=== PATIENT | male | born 1955 | race Caucasian/White ===

== ENCOUNTER 2017-06-01 16:15 | Inpatient (IN) ==
[2017-06-01] MEDS ORDERED: ASPIRIN 325 MG TABLET PO STA (16:44)
[2017-06-01] MEDS ORDERED: METOPROLOL TARTRATE 5 MG/5 ML VIAL IV STA (16:44)
[2017-06-01] MEDS ORDERED: ONDANSETRON 4 MG/2 ML VIAL IV STA (16:44)
[2017-06-01] MEDS ORDERED: NITROGLYCERIN 2% OINT 1 INCH/GM PACK TOP STA (16:44)
[2017-06-01 16:51] LABS: Basophils # 0.1 10*3/uL (0.0-0.2); Basophils % 0.8 % (0.0-0.8); Eosinophils # 0.5 10*3/uL (0.0-0.87); Eosinophils % 6.1 % (0.00-10.9); Immature Granulocytes % 0.6 %; Immature Granulocytes Absolute 0.05 #; Lymphocytes # 2.2 10*3/uL (1.4-4.0); Lymphocytes % 25.8 % (21.2-54.2); Mean Corpuscular HGB Conc 36.4 GM/DL (32-36); Mean Corpuscular Hemoglobin 31 PG (27-34); Mean Corpuscular Volume 85.1 FL (87-102); Mean Platelet Volume 10.1 FL (9.6-12.0); Monocytes # 0.5 10*3/uL (0.11-0.8); Monocytes % 5.9 % (1.7-12.7); Neutrophils # 5.1 10*3/uL (1.4-7.4); Neutrophils % 60.8 % (38.7-73.9); Platelet Count 293 T/CUMM (130-400); Red Blood Count 5.17 MC/CUMM (3.8-5.5); Red Cell Distribution Width 12.5 % (9.3-17.3); White Blood Count 8.4 T/CUMM (4-12)
[2017-06-01 17:00] LABS: INR 0.9; PT Patient Result 9.8 SECS; Partial Thromboplastin Time 24.7 SECS (0-40)
[2017-06-01 17:10] LABS: Alanine Aminotransferase 42 U/L (16-61); Albumin 4.1 G/DL (3.4-5.0); Alkaline Phosphatase 154 U/L (45-117); Aspartate Amino Transferase 33 U/L (0-37); Blood Urea Nitrogen 25 MG/DL (7-18); Calcium 8.7 MG/DL (8.5-10.1); Osmolality,Calculated 288.7 MOS/KG (273-304); Potassium 4.4 MMOL/L (3.5-5.1); Sodium 131 MMOL/L (136-145); Total Protein 7.7 G/DL (6.4-8.3); Troponin I Only 0.016 NG/ML (0.00-0.045)
[2017-06-01 17:13] LABS: Glucose 519 MG/DL (74-106)
[2017-06-01] MEDS ORDERED: SODIUM CHLORIDE 0.9% 1,000 ML IV STA (17:15)
[2017-06-01] MEDS ORDERED: INSULIN REGULAR 100 UNIT/ML SUBCUT STA (17:16)
[2017-06-01] MEDS ORDERED: METOPROLOL TARTRATE 5 MG/5 ML VIAL IV ONE (17:19)
[2017-06-01] MEDS ORDERED: ONDANSETRON 4 MG/2 ML VIAL ONE (17:19)
[2017-06-01] MEDS ORDERED: NITROGLYCERIN 2% OINT 1 INCH/GM PACK TOP ONE (17:19)
[2017-06-01] MEDS ORDERED: ASPIRIN 325 MG TABLET ONE (17:19)
[2017-06-01 17:50] LABS: Apearance,Urine CLEAR (Clear); Bilirubin,Urine Negative (Negative); Blood, Urine Negative (Negative); Glucose,Urine (UA) >=500 mg/dL (Negative); Ketones,Urine Negative (Negative); Nitrite,Urine Negative (Negative); Protein,Urine Negative; Urine Color Straw (Yellow); Urine Specific Gravity 1.025 (1.001-1.035); Urine Urobilinogen < 2.0 EU/DL (0.2-1.0); WBC,Urine <1 /HPF (0-6)
[2017-06-01 17:57] LABS: Barbiturates Screen,Urine Negative (Negative); Benzodiazepines Screen,Urine Negative (Negative); Cannabinoid Screen,Urine Negative (Negative); Opiate Screen,Urine Negative (Negative); Phencyclidine Screen,Urine Negative (Negative)
[2017-06-01] MEDS ORDERED: INSULIN REGULAR 100 UNIT/ML ONE (17:58)
[2017-06-01] MEDS ORDERED: ACETAMINOPHEN 325 MG TABLET PO PRN (18:18)
[2017-06-01] MEDS ORDERED: hydrALAZINE 20 MG/1 ML VIAL IV ONE (18:26)
[2017-06-01] MEDS ORDERED: amLODIPine 5 MG TABLET PO STA (18:27)
[2017-06-01 18:58] LABS: Free T4 (Free Thyroxine) 0.96 NG/DL (0.76-1.46); Risk Ratio 6.61; T4 (Thyroxine) 8.1 UG/DL (4.7-13.3); VLDL CHOLESTEROL 193.6 MG/DL
[2017-06-01] MEDS ORDERED: MORPHINE 2 MG/1 ML SYRINGE IV PRN (19:20)
[2017-06-01] MEDS ORDERED: LISINOPRIL 2.5 MG TABLET PO SCH (21:00)
[2017-06-01] MEDS ORDERED: cloNIDine 0.1 MG TABLET PO PRN (21:46)
[2017-06-01] MEDS: ATORVASTATIN 80 MG TABLET PO SCH (22:00)
[2017-06-01] MEDS: OMEGA 3 ACID ETHYL ESTERS 1 GM CAPSULE PO SCH (22:00)
[2017-06-01] MEDS: METOPROLOL SUCCINATE XL 25 MG TABLET PO SCH (22:01)
[2017-06-01] MEDS: DOCUSATE SODIUM 100 MG CAPSULE PO SCH (22:02)
[2017-06-01] MEDS: CETIRIZINE 10 MG TABLET PO SCH (22:04)
[2017-06-01] MEDS: ISOSORBIDE MONONITRATE 30 MG TABLET PO SCH (22:04)
[2017-06-01] MEDS: APIXABAN 5 MG TABLET PO SCH (22:04)
[2017-06-01] MEDS: DULoxetine 30 MG CAPSULE PO SCH (22:04)
[2017-06-01] MEDS: FAMOTIDINE 20 MG TABLET PO SCH (22:05)
[2017-06-01] MEDS: INSULIN GLARGINE 100 UNIT/ML SUBCUT SCH (22:05)
[2017-06-02 01:46] LABS: Basophils % 0.4 % (0.0-0.8); Eosinophils # 0.5 10*3/uL (0.0-0.87); Eosinophils % 6.4 % (0.00-10.9); Hematocrit 40.3 VOL% (42.0-52.0); Hemoglobin 14.2 GM/DL (14.0-18.0); Immature Granulocytes % 0.5 %; Immature Granulocytes Absolute 0.04 #; Lymphocytes # 3.1 10*3/uL (1.4-4.0); Lymphocytes % 41.6 % (21.2-54.2); Mean Corpuscular HGB Conc 35.2 GM/DL (32-36); Mean Corpuscular Hemoglobin 30 PG (27-34); Mean Corpuscular Volume 86.1 FL (87-102); Mean Platelet Volume 10.3 FL (9.6-12.0); Monocytes # 0.5 10*3/uL (0.11-0.8); Monocytes % 7.2 % (1.7-12.7); Neutrophils # 3.3 10*3/uL (1.4-7.4); Neutrophils % 43.9 % (38.7-73.9); Platelet Count 238 T/CUMM (130-400); Red Blood Count 4.68 MC/CUMM (3.8-5.5); Red Cell Distribution Width 12.6 % (9.3-17.3); White Blood Count 7.5 T/CUMM (4-12)
[2017-06-02 02:26] LABS: Albumin 3.5 G/DL (3.4-5.0); Bilirubin,Total 0.5 MG/DL (0.2-1.0); Calcium 8.7 MG/DL (8.5-10.1); Potassium 4.2 MMOL/L (3.5-5.1); Total Protein 6.3 G/DL (6.4-8.3)
[2017-06-02] MEDS ORDERED: NON-FORMULARY MEDICATION (Liraglutide [Victoza 3-Pak] 1.2 MG) SUBCUT SCH (09:00)
[2017-06-02] MEDS: LISINOPRIL 10 MG TABLET PO SCH ×2 (09:43→21:47)
[2017-06-02] MEDS: LEVOTHYROXINE 75 MCG TABLET PO SCH (09:43)
[2017-06-02] MEDS: amLODIPine 10 MG TABLET PO SCH (09:43)
[2017-06-02] MEDS: APIXABAN 5 MG TABLET PO SCH (09:43)
[2017-06-02] MEDS: PANTOPRAZOLE 40 MG TABLET PO SCH (09:43)
[2017-06-02] MEDS: DOCUSATE SODIUM 100 MG CAPSULE PO SCH ×2 (09:43→21:46)
[2017-06-02] MEDS ORDERED: diphenhydrAMINE CAP 25 MG CAPSULE PO ONE (10:11)
[2017-06-02] MEDS ORDERED: DIAZEPAM 5 MG TABLET PO ONE (10:11)
[2017-06-02] MEDS ORDERED: POTASSIUM CHLORIDE RIDER 10 MEQ in PREMIX 1 EACH IV PRN (10:11)
[2017-06-02] MEDS ORDERED: ASPIRIN 325 MG TABLET PO ONE (10:11)
[2017-06-02] MEDS ORDERED: MAGNESIUM SULF RIDER 2 GM in PREMIX 1 EACH IV PRN (10:11)
[2017-06-02] MEDS ORDERED: SODIUM CHLORIDE 0.9% 1,000 ML IV SCH (20:00)
[2017-06-02] MEDS: OMEGA 3 ACID ETHYL ESTERS 1 GM CAPSULE PO SCH (21:44)
[2017-06-02] MEDS: METOPROLOL SUCCINATE XL 25 MG TABLET PO SCH (21:44)
[2017-06-02] MEDS: CETIRIZINE 10 MG TABLET PO SCH (21:45)
[2017-06-02] MEDS: ATORVASTATIN 80 MG TABLET PO SCH (21:45)
[2017-06-02] MEDS: ISOSORBIDE MONONITRATE 30 MG TABLET PO SCH (21:45)
[2017-06-02] MEDS: DULoxetine 30 MG CAPSULE PO SCH (21:46)
[2017-06-02] MEDS: FAMOTIDINE 20 MG TABLET PO SCH (21:46)
[2017-06-02] MEDS: INSULIN GLARGINE 100 UNIT/ML SUBCUT SCH (21:48)
[2017-06-03] MEDS ORDERED: ASPIRIN 325 MG TABLET PO ONE (06:00)
[2017-06-03] MEDS ORDERED: diphenhydrAMINE CAP 25 MG CAPSULE PO ONE (06:00)
[2017-06-03] MEDS ORDERED: DIAZEPAM 5 MG TABLET PO ONE (06:00)
[2017-06-03] MEDS ORDERED: diphenhydrAMINE CAP 50 MG CAPSULE ONE (08:51)
[2017-06-03] MEDS: PANTOPRAZOLE 40 MG TABLET PO SCH (09:20)
[2017-06-03] MEDS: LISINOPRIL 10 MG TABLET PO SCH (09:20)
[2017-06-03] MEDS: amLODIPine 10 MG TABLET PO SCH (09:20)
[2017-06-03] MEDS: LEVOTHYROXINE 75 MCG TABLET PO SCH (09:21)
[2017-06-03] MEDS: DOCUSATE SODIUM 100 MG CAPSULE PO SCH (09:21)
[2017-06-03] MEDS ORDERED: LIDOCAINE 1% 20 ML VIAL ONE (10:04)
[2017-06-03] MEDS ORDERED: MIDAZOLAM 2 MG/2 ML VIAL ONE (10:05)
[2017-06-03] MEDS ORDERED: fentaNYL 100 MCG/2 ML VIAL ONE (10:05)
[2017-06-03] MEDS ORDERED: ENOXAPARIN 30 MG/0.3 ML SYRINGE ONE (10:37)
[2017-06-03] MEDS ORDERED: TIROFIBAN 5,000 MCG/100 ML PREMIX IV ONE (10:38)
[2017-06-03] MEDS ORDERED: GLUCAGON 1 MG VIAL IM PRN (10:55)
[2017-06-03] MEDS ORDERED: DEXTROSE 50% 25 GM/50 ML VIAL IV PRN (10:55)
[2017-06-03] MEDS ORDERED: EZETIMIBE 10 MG TABLET PO SCH (11:00)
[2017-06-03] MEDS ORDERED: ISOSORBIDE MONONITRATE 60 MG TABLET PO SCH (11:00)
[2017-06-03] MEDS ORDERED: SODIUM CHLORIDE 0.9% 1,000 ML IV SCH (11:00)
[2017-06-03] MEDS: INSULIN REGULAR 100 UNIT/ML SUBCUT SCH ×2 (11:36→17:09)
[2017-06-03 17:35] VITALS: BP 116/62
== END 2017-06-03 19:16 | disposition home or self-care (01) | DRG 287 ==
LOC: EDBD → EDUNIT# → N.ED 16:15 → N.EDINP 18:13 → SUATTDRO 18:13 → N.TELEN 19:52
PROVIDERS: ADMIT Family Medicine; ATTEND Internal Medicine
PROC: CLCCHCL (ICD-10-PCS; 2017-06-03 10:45)

== ENCOUNTER 2018-07-15 22:25 | Observation (INO) ==
[2018-07-15 23:32] LABS: Apearance,Urine CLEAR (Clear); Bilirubin,Urine Negative (Negative); Blood, Urine Negative (Negative); Glucose,Urine (UA) >=500 mg/dL (Negative); Ketones,Urine Negative (Negative); Nitrite,Urine Negative (Negative); Protein,Urine Negative; Urine Color Straw (Yellow); Urine Specific Gravity 1.024 (1.001-1.035); Urine Urobilinogen < 2.0 EU/DL (0.2-1.0)
[2018-07-15 23:34] LABS: Basophils % 0.6 % (0.0-0.8); Eosinophils # 0.2 10*3/uL (0.0-0.87); Eosinophils % 2.4 % (0.00-10.9); Hematocrit 41.8 VOL% (42.0-52.0); Hemoglobin 14.6 GM/DL (14.0-18.0); Immature Granulocytes % 0.1 %; Immature Granulocytes Absolute 0.01 #; Lymphocytes # 2.8 10*3/uL (1.4-4.0); Lymphocytes % 40.9 % (21.2-54.2); Mean Corpuscular HGB Conc 34.9 GM/DL (32-36); Mean Corpuscular Volume 85.3 FL (87-102); Mean Platelet Volume 10.3 FL (9.6-12.0); Monocytes % 8.2 % (1.7-12.7); Neutrophils % 47.8 % (38.7-73.9); Platelet Count 231 T/CUMM (130-400); Red Cell Distribution Width 12.6 % (9.3-17.3); White Blood Count 6.8 T/CUMM (4-12)
[2018-07-15 23:40] LABS: Barbiturates Screen,Urine Negative (Negative); Benzodiazepines Screen,Urine Negative (Negative); Cannabinoid Screen,Urine Negative (Negative); Opiate Screen,Urine Negative (Negative); Phencyclidine Screen,Urine Negative (Negative)
[2018-07-15 23:58] LABS: Albumin 4.2 G/DL (3.4-5.0); Calcium 10.2 MG/DL (8.5-10.1); Osmolality,Calculated 284.1 MOS/KG (273-304); Total Protein 7.4 G/DL (6.4-8.3)
[2018-07-16] MEDS ORDERED: MAGNESIUM SULF RIDER 2 GM in PREMIX 1 EACH IV STA (00:48)
[2018-07-16] MEDS ORDERED: LABETALOL 20 MG/4 ML SYRINGE IV PRN (03:53)
[2018-07-16] MEDS ORDERED: DEXTROSE 50% 25 GM/50 ML SYRINGE IV PRN ×2 (03:59→04:29)
[2018-07-16] MEDS ORDERED: GLUCAGON 1 MG VIAL IM PRN ×2 (03:59→04:29)
[2018-07-16 07:34] LABS: % Iron Saturation 26.6 % (18-50); Ferritin 56.3 ng/ml (26-388); Risk Ratio 3.5; VLDL CHOLESTEROL 43.4 MG/DL
[2018-07-16] MEDS: INSULIN REGULAR 100 UNIT/ML SUBCUT SCH ×4 (08:22→21:18)
[2018-07-16] MEDS: ASPIRIN EC 81 MG TABLET PO SCH (09:06)
[2018-07-16] MEDS ORDERED: ATORVASTATIN 20 MG TABLET PO SCH (21:00)
[2018-07-16] MEDS: DIPYRIDAMOLE/ASPIRIN 200-25 MG CAPSULE PO SCH (21:18)
[2018-07-17] MEDS: DIPYRIDAMOLE/ASPIRIN 200-25 MG CAPSULE PO SCH (08:36)
[2018-07-17] MEDS: ASPIRIN EC 81 MG TABLET PO SCH (08:37)
[2018-07-17] MEDS: INSULIN REGULAR 100 UNIT/ML SUBCUT SCH ×2 (08:37→11:52)
[2018-07-17] MEDS ORDERED: FLUoxetine 20 MG CAPSULE PO SCH (09:00)
[2018-07-17 12:25] VITALS: BP 149/86
== END 2018-07-17 11:55 | disposition home or self-care (01) ==
LOC: EDUNIT# → EDBD → N.ED 22:25 → N.EDINP 22:25 → N.4E 07-16 04:33
PROVIDERS: ADMIT Internal Medicine; ATTEND Internal Medicine

== ENCOUNTER 2019-08-13 10:54 | Observation (INO) ==
[2019-08-13] MEDS ORDERED: ASPIRIN 325 MG TABLET PO STA (11:17)
[2019-08-13] MEDS ORDERED: ENOXAPARIN 100 MG/ML SYRINGE SUBCUT STA (11:17)
[2019-08-13 12:13] LABS: Basophils % 0.6 % (0.0-0.8); Eosinophils # 0.2 10*3/uL (0.0-0.87); Hematocrit 46.6 VOL% (42.0-52.0); Hemoglobin 16.2 GM/DL (14.0-18.0); Immature Granulocytes % 0.3 %; Immature Granulocytes Absolute 0.02 #; Lymphocytes % 48.4 % (21.2-54.2); Mean Corpuscular HGB Conc 34.8 GM/DL (32-36); Mean Corpuscular Volume 85.7 FL (87-102); Mean Platelet Volume 9.9 FL (9.6-12.0); Monocytes % 8.4 % (1.7-12.7); Neutrophils % 39.3 % (38.7-73.9); Platelet Count 239 T/CUMM (130-400); Red Blood Count 5.44 MC/CUMM (3.8-5.5); Red Cell Distribution Width 12.6 % (9.3-17.3); White Blood Count 6.3 T/CUMM (4-12)
[2019-08-13 12:14] LABS: Bilirubin,Total 0.8 MG/DL (0.2-1.0); Calcium 9.7 MG/DL (8.5-10.1); Osmolality,Calculated 274.8 MOS/KG (273-304); Total Protein 7.9 G/DL (6.4-8.3)
[2019-08-13 12:20] LABS: INR 1.1; PT Patient Result 11.3 SECS (9.8-11.9); Partial Thromboplastin Time 28.9 SECS (23.9-33.8)
[2019-08-13] MEDS ORDERED: DOCUSATE SODIUM 100 MG CAPSULE PO PRN (13:45)
[2019-08-13] MEDS ORDERED: LACTULOSE 20 GM/30 ML UDCUP PO PRN (13:45)
[2019-08-13] MEDS ORDERED: MORPHINE 4 MG/1 ML VIAL IV PRN (13:45)
[2019-08-13] MEDS ORDERED: traMADol 50 MG TABLET PO PRN (13:45)
[2019-08-13] MEDS ORDERED: DEXTROSE 10% 250 ML BAG IV PRN (13:45)
[2019-08-13] MEDS ORDERED: ONDANSETRON 4 MG/2 ML VIAL IV PRN (13:45)
[2019-08-13] MEDS ORDERED: ALUM/MAG/SIMETH/LIDO VISC 1:1 30 ML BOTTLE PO PRN (13:45)
[2019-08-13] MEDS ORDERED: GLUCAGON 1 MG VIAL IM PRN (13:45)
[2019-08-13] MEDS ORDERED: ACETAMINOPHEN 325 MG TABLET PO PRN (13:45)
[2019-08-13 14:31] LABS: Apearance,Urine CLEAR (Clear); Bilirubin,Urine Negative (Negative); Blood, Urine Negative (Negative); Glucose,Urine (UA) Negative (Negative); Ketones,Urine Negative (Negative); Mucus,Urine Occasional /LPF (Occasional); Nitrite,Urine Negative (Negative); Protein,Urine Negative; RBC,Urine 1 /HPF (0-4); Urine Color Yellow (Yellow); Urine Specific Gravity 1.012 (1.001-1.035); Urine Urobilinogen < 2.0 EU/DL (0.2-1.0); WBC,Urine <1 /HPF (0-6)
[2019-08-13] MEDS ORDERED: NITROGLYCERIN SL 0.4 MG TABLET SL PRN (15:03)
[2019-08-13] MEDS: SODIUM CHLORIDE 0.9% 1,000 ML IV SCH (16:06)
[2019-08-13] MEDS: INSULIN LISPRO 100 UNIT/ML SUBCUT SCH ×2 (17:11→20:11)
[2019-08-13 17:36] LABS: Barbiturates Screen,Urine Negative (Negative); Benzodiazepines Screen,Urine Negative (Negative); Cannabinoid Screen,Urine Negative (Negative); Opiate Screen,Urine Negative (Negative); Phencyclidine Screen,Urine Negative (Negative)
[2019-08-13] MEDS ORDERED: APIXABAN 5 MG TABLET PO SCH (21:00)
[2019-08-13] MEDS ORDERED: METOPROLOL SUCCINATE XL 50 MG TABLET PO SCH (21:00)
[2019-08-13] MEDS ORDERED: ATORVASTATIN 40 MG TABLET PO SCH (21:00)
[2019-08-14] MEDS: SODIUM CHLORIDE 0.9% 1,000 ML IV SCH ×2 (01:22→08:59)
[2019-08-14 05:53] LABS: Basophils % 0.4 % (0.0-0.8); Eosinophils # 0.2 10*3/uL (0.0-0.87); Eosinophils % 4.4 % (0.00-10.9); Hematocrit 45.7 VOL% (42.0-52.0); Hemoglobin 15.7 GM/DL (14.0-18.0); Immature Granulocytes % 0.2 %; Immature Granulocytes Absolute 0.01 #; Mean Corpuscular HGB Conc 34.4 GM/DL (32-36); Mean Corpuscular Volume 86.7 FL (87-102); Mean Platelet Volume 9.9 FL (9.6-12.0); Monocytes % 9.1 % (1.7-12.7); Neutrophils % 31.9 % (38.7-73.9); Platelet Count 206 T/CUMM (130-400); Red Blood Count 5.27 MC/CUMM (3.8-5.5); Red Cell Distribution Width 12.6 % (9.3-17.3); White Blood Count 5.5 T/CUMM (4-12)
[2019-08-14 06:32] LABS: Albumin 3.3 G/DL (3.4-5.0); Bilirubin,Total 1.1 MG/DL (0.2-1.0); Osmolality,Calculated 285.3 MOS/KG (273-304); Risk Ratio 4.34; Thyroid Stimulating Hormone 1.28 uIU/ml (0.358-3.74); Total Protein 6.9 G/DL (6.4-8.3); VLDL CHOLESTEROL 62.6 MG/DL
[2019-08-14 06:54] LABS: Eosinophils 4 % (0-10); Lymphocytes 54 % (20-55); Segmented Neutrophils 33 % (50-85); Total Cells Counted 100
[2019-08-14 06:55] LABS: Ovalocytes Slight; Platelet Estimate Normal; Polychromasia Slight
[2019-08-14] MEDS ORDERED: MAGNESIUM SULF RIDER 2 GM in PREMIX 1 EACH IV ONE (07:33)
[2019-08-14] MEDS: INSULIN LISPRO 100 UNIT/ML SUBCUT SCH ×2 (08:58→12:55)
[2019-08-14] MEDS ORDERED: ISOSORBIDE MONONITRATE 60 MG TABLET PO SCH (09:00)
[2019-08-14] MEDS ORDERED: lisinopriL 2.5 MG TABLET PO SCH (09:00)
[2019-08-14] MEDS ORDERED: PANTOPRAZOLE 40 MG TABLET PO SCH (09:00)
[2019-08-14] MEDS ORDERED: EZETIMIBE 10 MG TABLET PO SCH (09:00)
[2019-08-14] MEDS ORDERED: ENOXAPARIN 40 MG/0.4 ML SYRINGE SUBCUT SCH (11:00)
[2019-08-14 12:18] VITALS: BP 130/68
== END 2019-08-14 13:29 | disposition home or self-care (01) ==
LOC: N.ED 10:54 → N.EDINP 10:54 → N.TELES 14:28
PROVIDERS: ADMIT Family Medicine; ATTEND Family Medicine

== ENCOUNTER 2019-09-17 23:30 | Observation (INO) ==
[2019-09-18] MEDS ORDERED: ASPIRIN 325 MG TABLET PO STA (00:01)
[2019-09-18] MEDS ORDERED: ALUM/MAG/SIMETH/LIDO VISC 1:1 30 ML BOTTLE PO STA (00:01)
[2019-09-18] MEDS ORDERED: ONDANSETRON 4 MG/2 ML VIAL IV STA (00:01)
[2019-09-18] MEDS ORDERED: NITROGLYCERIN 2% OINT 1 INCH/GM PACK TOP STA (00:01)
[2019-09-18] MEDS ORDERED: MORPHINE 4 MG/1 ML VIAL IV STA (00:01)
[2019-09-18 00:19] LABS: Basophils % 0.5 % (0.0-0.8); Eosinophils # 0.2 10*3/uL (0.0-0.87); Eosinophils % 2.7 % (0.00-10.9); Hematocrit 43.5 VOL% (42.0-52.0); Hemoglobin 15.2 GM/DL (14.0-18.0); Immature Granulocytes % 0.1 %; Immature Granulocytes Absolute 0.01 #; Lymphocytes % 37.9 % (21.2-54.2); Mean Corpuscular HGB Conc 34.9 GM/DL (32-36); Mean Corpuscular Volume 86.1 FL (87-102); Mean Platelet Volume 10.4 FL (9.6-12.0); Monocytes % 9.1 % (1.7-12.7); Neutrophils % 49.7 % (38.7-73.9); Platelet Count 220 T/CUMM (130-400); Red Blood Count 5.05 MC/CUMM (3.8-5.5); Red Cell Distribution Width 12.3 % (9.3-17.3)
[2019-09-18 00:27] LABS: PT Patient Result 10.8 SECS (9.8-11.9)
[2019-09-18 00:32] LABS: Bilirubin,Total 0.6 MG/DL (0.2-1.0); Calcium 9.4 MG/DL (8.5-10.1); Osmolality,Calculated 279.5 MOS/KG (273-304); Total Protein 7.9 G/DL (6.4-8.3)
[2019-09-18] MEDS ORDERED: oxyCODONE/ACETAMINOPHEN 5-325 MG TABLET PO PRN (01:49)
[2019-09-18] MEDS ORDERED: GLUCAGON 1 MG VIAL IM PRN (01:51)
[2019-09-18] MEDS ORDERED: NITROGLYCERIN SL 0.4 MG TABLET SL PRN (01:51)
[2019-09-18] MEDS ORDERED: DEXTROSE 50% 25 GM/50 ML VIAL IV PRN (01:51)
[2019-09-18 02:45] LABS: Apearance,Urine CLEAR (Clear); Bilirubin,Urine Negative (Negative); Blood, Urine Negative (Negative); Glucose,Urine (UA) >=500 mg/dL (Negative); Ketones,Urine Negative (Negative); Mucus,Urine Occasional /LPF (Occasional); Nitrite,Urine Negative (Negative); Protein,Urine Negative; RBC,Urine 1 /HPF (0-4); Urine Color Yellow (Yellow); Urine Specific Gravity 1.035 (1.001-1.035); WBC,Urine <1 /HPF (0-6)
[2019-09-18] MEDS: SODIUM CHLORIDE 0.9% 1,000 ML IV SCH ×3 (04:51→23:13)
[2019-09-18] MEDS: LEVOTHYROXINE 75 MCG TABLET PO SCH (05:42)
[2019-09-18] MEDS ORDERED: APIXABAN 5 MG TABLET PO SCH (09:00)
[2019-09-18 09:21] LABS: Calcium 9.2 MG/DL (8.5-10.1); Osmolality,Calculated 280.8 MOS/KG (273-304)
[2019-09-18 10:09] LABS: Troponin I < 0.015 NG/ML (0.00-0.045)
[2019-09-18] MEDS: EZETIMIBE 10 MG TABLET PO SCH (11:05)
[2019-09-18] MEDS: ASPIRIN EC 81 MG TABLET PO SCH (11:05)
[2019-09-18] MEDS: LOSARTAN 50 MG TABLET PO SCH (11:05)
[2019-09-18] MEDS: INSULIN LISPRO 100 UNIT/ML SUBCUT SCH ×4 (11:06→20:58)
[2019-09-18] MEDS: INSULIN GLARGINE 100 UNIT/ML SUBCUT SCH ×2 (11:06→21:40)
[2019-09-18 11:50] LABS: Troponin I < 0.015 NG/ML (0.00-0.045)
[2019-09-18] MEDS ORDERED: HEPARIN/NACL 0.9% 2 UNITS/ML 1,000 ML IV ONE (13:24)
[2019-09-18] MEDS ORDERED: LIDOCAINE 1% 20 ML VIAL ONE (13:24)
[2019-09-18] MEDS ORDERED: diphenhydrAMINE CAP 25 MG CAPSULE PO ONE (13:24)
[2019-09-18] MEDS ORDERED: MAGNESIUM SULF RIDER 2 GM in PREMIX 1 EACH IV PRN (13:24)
[2019-09-18] MEDS ORDERED: POTASSIUM CHLORIDE RIDER 10 MEQ in PREMIX 1 EACH IV PRN (13:24)
[2019-09-18] MEDS ORDERED: DIAZEPAM 5 MG TABLET PO ONE (13:25)
[2019-09-18] MEDS ORDERED: MIDAZOLAM 2 MG/2 ML VIAL ONE (13:45)
[2019-09-18] MEDS ORDERED: fentaNYL 100 MCG/2 ML VIAL ONE (13:45)
[2019-09-18] MEDS ORDERED: METOPROLOL SUCCINATE XL 50 MG TABLET PO SCH (21:00)
[2019-09-18] MEDS ORDERED: FAMOTIDINE 20 MG TABLET PO SCH (21:00)
[2019-09-18] MEDS ORDERED: CETIRIZINE 10 MG TABLET PO SCH (21:00)
[2019-09-18] MEDS ORDERED: OMEGA 3 ACID ETHYL ESTERS 1 GM CAPSULE PO SCH (21:00)
[2019-09-18] MEDS ORDERED: DULoxetine 30 MG CAPSULE PO SCH (21:00)
[2019-09-18] MEDS ORDERED: ATORVASTATIN 40 MG TABLET PO SCH (21:00)
[2019-09-18] MEDS ORDERED: ISOSORBIDE MONONITRATE 60 MG TABLET PO SCH (21:00)
[2019-09-19 05:21] LABS: Basophils % 0.2 % (0.0-0.8); Eosinophils # 0.1 10*3/uL (0.0-0.87); Eosinophils % 1.6 % (0.00-10.9); Hemoglobin 15.2 GM/DL (14.0-18.0); Immature Granulocytes % 0.6 %; Immature Granulocytes Absolute 0.05 #; Lymphocytes # 1.6 10*3/uL (1.4-4.0); Lymphocytes % 17.5 % (21.2-54.2); Mean Corpuscular HGB Conc 34.5 GM/DL (32-36); Mean Platelet Volume 10.3 FL (9.6-12.0); Monocytes % 4.6 % (1.7-12.7); Neutrophils % 75.5 % (38.7-73.9); Platelet Count 193 T/CUMM (130-400); Red Cell Distribution Width 12.4 % (9.3-17.3)
[2019-09-19] MEDS: LEVOTHYROXINE 75 MCG TABLET PO SCH (05:33)
[2019-09-19 06:00] LABS: Risk Ratio 3.82; VLDL CHOLESTEROL 38.4 MG/DL
[2019-09-19 06:57] LABS: Thyroid Stimulating Hormone 1.15 uIU/ml (0.358-3.74)
[2019-09-19 08:26] LABS: Calcium 9.2 MG/DL (8.5-10.1); Osmolality,Calculated 278.8 MOS/KG (273-304)
[2019-09-19] MEDS: LOSARTAN 50 MG TABLET PO SCH (08:54)
[2019-09-19] MEDS: INSULIN LISPRO 100 UNIT/ML SUBCUT SCH (08:54)
[2019-09-19] MEDS: EZETIMIBE 10 MG TABLET PO SCH (08:54)
[2019-09-19] MEDS: ASPIRIN EC 81 MG TABLET PO SCH (08:54)
[2019-09-19] MEDS: INSULIN GLARGINE 100 UNIT/ML SUBCUT SCH (08:55)
[2019-09-19 09:50] VITALS: BP 151/83
== END 2019-09-19 10:17 | disposition home or self-care (01) ==
LOC: EDUNIT# → EDBD → N.ED 23:30 → N.EDINP 23:30 → SUATTDRO 09-18 01:51 → N.EDINP 09-18 02:56 → N.TELES 09-18 03:49
PROVIDERS: ADMIT Internal Medicine; ATTEND Hospitalist
PROC: CLCCHCL (ICD-10-PCS; 2019-09-18 14:15)

== ENCOUNTER 2020-10-13 21:27 | Inpatient (IN) ==
[2020-10-13] MEDS ORDERED: LIDOCAINE 1% 20 ML VIAL ONE (21:44)
[2020-10-13] MEDS ORDERED: HEPARIN/NACL 0.9% 2 UNITS/ML 3,000 UNIT/1,500 ML BAG IV ONE (21:44)
[2020-10-13] MEDS ORDERED: MIDAZOLAM 2 MG/2 ML VIAL ONE (21:44)
[2020-10-13] MEDS ORDERED: fentaNYL 100 MCG/2 ML VIAL ONE (21:44)
[2020-10-13 21:47] LABS: Basophils % 0.2 % (0.0-0.8); Hematocrit 39.5 VOL% (42.0-52.0); Immature Granulocytes % 0.4 %; Immature Granulocytes Absolute 0.04 #; Lymphocytes # 0.5 10*3/uL (1.4-4.0); Mean Corpuscular HGB Conc 35.4 GM/DL (32-36); Mean Corpuscular Volume 87.8 FL (87-102); Mean Platelet Volume 10.1 FL (9.6-12.0); Monocytes % 5.2 % (1.7-12.7); Neutrophils % 90.2 % (38.7-73.9); Platelet Count 237 T/CUMM (130-400); Red Cell Distribution Width 11.9 % (9.3-17.3); White Blood Count 11.4 T/CUMM (4-12)
[2020-10-13] MEDS ORDERED: CLOPIDOGREL 300 MG TABLET ONE (21:54)
[2020-10-13] MEDS ORDERED: HEPARIN 5,000 UNIT/1 ML VIAL ONE (21:54)
[2020-10-13 21:59] LABS: PT Patient Result 11.7 SECS (10.5-12.0); Partial Thromboplastin Time 28.9 SECS (23.9-33.8)
[2020-10-13 22:10] LABS: Albumin 3.2 G/DL (3.4-5.0); Bilirubin,Total 0.9 MG/DL (0.20-1.00); Calcium 8.7 MG/DL (8.5-10.1); Osmolality,Calculated 275.4 MOS/KG (273-304); Total Protein 7.7 G/DL (6.4-8.2)
[2020-10-13] MEDS ORDERED: NITROGLYCERIN DRIP 50 MG/250 ML BOTTLE IV ONE (22:10)
[2020-10-13 22:26] LABS: Lymphocytes 5 % (20-55); Platelet Estimate Normal; Segmented Neutrophils 89 % (50-85); Total Cells Counted 100
[2020-10-13] MEDS ORDERED: MORPHINE 10 MG/1 ML VIAL ONE (22:47)
[2020-10-13] MEDS ORDERED: ASPIRIN 325 MG TABLET PO STA (22:56)
[2020-10-13] MEDS ORDERED: NITROGLYCERIN DRIP 50 MG/250 ML BOTTLE IV SCH (23:00)
[2020-10-13] MEDS ORDERED: HYDROmorphone 2 MG/1 ML VIAL ONE (23:08)
[2020-10-13] MEDS ORDERED: GLUCAGON 1 MG VIAL IM PRN (23:13)
[2020-10-13] MEDS ORDERED: DEXTROSE 50% 25 GM/50 ML VIAL IV PRN (23:13)
[2020-10-13] MEDS ORDERED: ATORVASTATIN 40 MG TABLET PO STA (23:14)
[2020-10-13] MEDS ORDERED: HYDROmorphone 2 MG/1 ML VIAL IV PRN (23:23)
[2020-10-13] MEDS ORDERED: FUROSEMIDE 40 MG/4 ML VIAL ONE (23:31)
[2020-10-13] MEDS ORDERED: FUROSEMIDE 40 MG/4 ML VIAL IV ONE (23:32)
[2020-10-13] MEDS ORDERED: ROCURONIUM 100 MG/10 ML VIAL IV ONE (23:38)
[2020-10-13] MEDS ORDERED: ETOMIDATE 20 MG/10 ML VIAL IV ONE ×2 (23:38→23:39)
[2020-10-13] MEDS ORDERED: VECURONIUM 10 MG VIAL IV ONE (23:38)
[2020-10-13] MEDS ORDERED: ATROPINE 1 MG/10 ML SYRINGE IV ONE (23:42)
[2020-10-13] MEDS ORDERED: HEPARIN/NACL 0.9% 2 UNITS/ML 1,000 UNIT/500 ML BAG IV ONE (23:51)
[2020-10-13] MEDS ORDERED: EPINEPHrine 1 MG/ML VIAL ONE ×4 (23:56→23:57)
[2020-10-14] MEDS ORDERED: EPINEPHrine 1 MG/10 ML SYRINGE ONE (01:06)
[2020-10-14] MEDS ORDERED: DEXTROSE 50% 25 GM/50 ML SYRINGE IV ONE (01:06)
[2020-10-14] MEDS ORDERED: SODIUM BICARBONATE 50 MEQ/50 ML SYRINGE IV ONE (01:06)
[2020-10-14] MEDS ORDERED: CALCIUM CHLORIDE 1,000 MG/10 ML SYRINGE IV ONE ×2 (01:06)
[2020-10-14] MEDS ORDERED: EPINEPHrine 1 MG/ML VIAL ONE (01:06)
[2020-10-14 01:53] VITALS: BP 121/74
[2020-10-14] MEDS ORDERED: INSULIN REGULAR 100 UNIT/ML SUBCUT SCH (07:30)
[2020-10-14] MEDS ORDERED: ASPIRIN EC 81 MG TABLET PO SCH (09:00)
[2020-10-14] MEDS ORDERED: METOPROLOL SUCCINATE XL 50 MG TABLET PO SCH (09:00)
== END 2020-10-14 00:02 | disposition expired | DRG 286 ==
LOC: N.ED 21:27 → N.CVR 21:45
PROVIDERS: ADMIT Internal Medicine Cardiovascular Disease; ATTEND Internal Medicine Cardiovascular Disease